=== PATIENT | male | born 1995 | race Hispanic/Latino ===

== ENCOUNTER 2017-08-31 01:23 | Emergency (ER) | payer BC ==
[~2017-08-31] VITALS: Ht 172.7 cm; Wt 84.2 kg
[2017-08-31 02:01] LABS: INFLUENZA A NONE DETECTED (NONE DETECT); INFLUENZA B POSITIVE (NONE DETECT)
[2017-08-31] MEDS ORDERED: CODEINE/GUAIFEN1 SOL PO (02:25)
[2017-08-31] MEDS ORDERED: TAM75CAP PO (02:25)
[2017-08-31] MEDS ORDERED: GENTAMICIN0.3 % OU (02:26)
[2017-08-31 02:35] VITALS: BP 122/82
== END 2017-08-31 02:35 | disposition home or self-care (01) | DRG 195 ==
LOC: ED 01:23
PROVIDERS: Emergency Medicine
DX: J10.1 Influenza due to other identified influenza virus with other respiratory manifestations (principal); H10.9 Unspecified conjunctivitis; R05 Cough; R50.9 Fever, unspecified; R09.81 Nasal congestion; M79.1 Myalgia

== ENCOUNTER 2019-07-18 | Emergency (ER) | payer BC ==
[~2019-07-18] MED LIST: CODEINE/GUAIFEN1 SOL PO; GENTAMICIN0.3 % OU; TAM75CAP PO
[2019-07-18] MEDS ORDERED: VIMPAT200 MG PO ×2 (20:33→20:34)
[2019-07-18] MEDS ORDERED: KEPPRA1000 MG PO (20:34)
[2019-07-18] MEDS ORDERED: TESSALON PER100 MG PO (20:51)
== END 2019-07-18 21:05 | disposition home or self-care (01) | DRG 204 ==
DX: R05 Cough (principal)